=== PATIENT | male | born 1995 | race Caucasian/White ===

== ENCOUNTER 2020-05-05 21:40 | Observation (INO) | payer BC ==
[~2020-05-05] VITALS: Ht 188 cm; Wt 69.0 kg
--- NOTE | 2020-05-05 21:40 | NUR ---
INITIAL PT CONTACT. PT WAS A TRANSFER FROM [facility] AFTER "TAKING APPROX 60MG POWDERED ADDERALL AND 100MG OF DXM". ACCORDING TO TRANSFER RECORD PT BECAME INCREASINGLY AGITATED AT THEIR FACILITY, NEEDING TRANSFER. TOTAL OF 7 OF VALIUM GIVEN AT [facility]. PER EMS PT IS MUCH MORE CALM AND RELAXED AT THIS TIME. PT A&OX4, RESPIRATIONS EQUAL AND UNLABORED. PT RESTING CALMLY ON GURNEY WITH EYES CLOSED. WHEN AWAKE PT IS MILDLY ANXIOUS BUT ABLE TO CONVERSE APPROPRIATELY. PT PROVIDED WARM BLANKET. DENIES ANY ADDITIONAL NEEDS AT THIS TIME. CALL LIGHT AND PERSONAL BELONGINGS WITHIN REACH. AWAITING ERP
--- NOTE | 2020-05-05 22:16 | NUR ---
ERP AT BEDSIDE
[2020-05-05 22:36] LABS: BASOPHILS % (AUTO) 1 % (0-1); EOSINOPHILS % (AUTO) 1 % (1-7); LYMPHOCYTES % (AUTO) 25 % (22-44); MEAN CORPUSCULAR HGB CONC 34.4 g/dL (33.2-36.2); MEAN PLATELET VOLUME 9.7 fL (7.4-10.4); MONOCYTES % (AUTO) 8 % (2-9); NEUTROPHILS % (AUTO) 66 % (42-75); PLATELET COUNT 180 x10^3/uL (130-400); RED BLOOD COUNT 4.56 x10^6/uL (4.38-5.82); RED CELL DISTRIBUTION WIDTH 13.3 % (9.4-14.8)
[2020-05-05 22:45] LABS: ALBUMIN 3.7 g/dL (3.4-5.0); ANION GAP 5 mmol/L (5-15); CALCIUM 9.1 mg/dL (8.5-10.1); CHLORIDE 109 mmol/L (98-107); SALICYLATE LEVEL 2.1 mg/dL (2.8-20.0)
[2020-05-05 22:49] LABS: ALANINE AMINOTRANSFERASE 53 U/L (12-78); ALKALINE PHOSPHATASE 76 U/L (45-117); BILIRUBIN,TOTAL 0.6 mg/dL (0.2-1.0); TOTAL PROTEIN 7.5 g/dL (6.4-8.2)
--- NOTE | 2020-05-05 22:59 | NUR ---
PT UPRIGHT ON GURNEY. RESTING COMFORTABLY. NADN, VSS. PT DENIES ANY NEEDS AT THIS TIME. CALL LIGHT AND BELONGINGS WITHIN REACH. MOTHER AT BEDSIDE
[2020-05-06] MEDS ORDERED: SODIUM CHLORIDE 0.9% 1,000 ML IV ONE (00:30)
--- NOTE | 2020-05-06 01:26 | NUR ---
Pt to be admitted to [facility], room 484-2. Report called to [facility].
[2020-05-06 02:12] VITALS: BP 143/94
[2020-05-06 05:57] LABS: BASOPHILS % (AUTO) 1 % (0-1); EOSINOPHILS % (AUTO) 0 % (1-7); LYMPHOCYTES % (AUTO) 20 % (22-44); MEAN CORPUSCULAR HGB CONC 34.6 g/dL (33.2-36.2); MEAN PLATELET VOLUME 9.9 fL (7.4-10.4); MONOCYTES % (AUTO) 7 % (2-9); NEUTROPHILS % (AUTO) 73 % (42-75); PLATELET COUNT 177 x10^3/uL (130-400); RED BLOOD COUNT 4.71 x10^6/uL (4.38-5.82); RED CELL DISTRIBUTION WIDTH 13.1 % (9.4-14.8)
[2020-05-06 07:36] VITALS: BP 134/84
== END 2020-05-06 11:10 | disposition home or self-care (01) ==
LOC: ED 22:20 → EDIP 05-06 00:07 → INTOOBSV 05-06 00:07 → 4EST 05-06 01:59
PROVIDERS: ADMIT Internal Medicine; ATTEND Hospitalist
DX: T43.621A Poisoning by amphetamines, accidental (unintentional), initial encounter (principal); T48.3X1A Poisoning by antitussives, accidental (unintentional), initial encounter; R00.0 Tachycardia, unspecified; F15.10 Other stimulant abuse, uncomplicated; F11.20 Opioid dependence, uncomplicated; F41.9 Anxiety disorder, unspecified; Z63.8 Other specified problems related to primary support group
CPT/HCPCS: 36415; 80053; 80299; 80320; 80329; 85025; 96360; 96361; 99284; G0378; J7030; G0480